=== PATIENT | male | born 1935 | race Caucasian/White ===

== ENCOUNTER 2016-04-09 13:56 | Inpatient (IN) | payer OTHER ==
--- NOTE | ~2016-04-09 | CN ---
Consultation Report [facility] [address] [place]. [address] NAME: CLAUDIA DANGELO : 37 STATUS : ADM IN PAT#: [id number] AGE: 80 ADM/REG DATE : 04/09/16 MR#: [id number] REPORT SERV DATE: 04/09/16 DICTATED BY: DATE: REPORT STATUS : Draft TRANSCRIBED BY: MODL DATE: 04/09/16 DATE OF CONSULTATION: CURRENT LOCATION: ER, bed 18. REASON FOR EVALUATION: Worsening chronic kidney disease with questionable precision to end- stage renal disease. HISTORY OF PRESENT ILLNESS: This is a very pleasant 80-year-old male patient, followed in our office by Dr. Juan Chaudhary. He is sent to [facility] for admission today post followup with Dr. Chaudhary. I have discussed the patient with Dr. Chaudhary via telephone this afternoon and recent history of the patient includes worsening difficulty with appetite and p.o. intake with questionable uremic symptoms over the last two to three months. He was recently placed inpatient in an outlying medical facility for severe nausea and vomiting. The patient was discharged after a short period of inpatient hospitalization apparently in early December and he was placed on a statin, which he did not tolerate very well. He was removed from this medication, but has continued to have the same difficulty with worsening fatigue and malaise as well as an overall poor appetite. He reports that food has essentially poor "cardboard-like taste." He is followed in the outpatient setting by Dr. Mehdi Holloway of Cardiology followed by Dr. Kwesi Mercado from Vascular and has recently had a followup with Dr. Mercado's office for monitoring of an abdominal aortic aneurysm, which was ultrasounded at his most recent followup. The patient is accompanied by his this afternoon. He is cachectic and ill-appearing; however, he is not currently in acute distress. Baseline creatinine over the last calendar year from available laboratories at [facility] appear to show baseline creatinine of approximately 3.01 to 3.44. Laboratories here at [facility] suggests previous creatinine in the calender year of 2016 ranging from 1.87 to 2.98. The patient is awake, alert, and oriented. He is in no acute distress. Denies current chest pain. Chronic nausea. No diarrhea or distress. PAST MEDICAL HISTORY: Positive for chronic kidney disease with medical history as listed above, baseline creatinine as reflected in HPI. Abdominal aortic aneurysm, followed by Dr. Kwesi Mercado with recent followup in his office. Additional medical history includes failure to thrive, chronic difficulty with dysphagia or difficult swallow as identified by the patient today in HPI and workup. History is also positive for hypertension, coronary artery disease status post CABG, PTCA and stent, BPH, degenerative joint disease, osteoarthritis, hyperlipidemia. SURGICAL HISTORY: Includes coronary artery bypass, appendectomy, cholecystectomy, and hiatal hernia. SOCIAL HISTORY: He is . No EtOH. No illicit drugs. No tobacco use. MEDICATIONS ON ENTRY: Received from the patient's home medications include carvedilol 12.5 mg p.o. b.i.d., furosemide 20 mg p.o. daily, CoQ10 100 mg in a.m. and p.m., isosorbide 60 mg Consultation Report [address] [place]. [address] NAME: CLAUDIA DANGELO : 39 STATUS : ADM IN [facility]#: [id number] AGE: 80 ADM/REG DATE : 04/09/16 MR#: [id number] REPORT SERV DATE: 04/09/16 DICTATED BY: DATE: REPORT STATUS : Draft TRANSCRIBED BY: MODL DATE: 04/09/16 p.o. daily, Plavix 75 mg p.o. with dinner, ASA 81 mg daily, nitroglycerin 0.4 mg p.r.n. for chest pain. PHYSICAL EXAMINATION: VITAL SIGNS: Blood pressure 144/71, temperature 97.5, respiratory rate at 18, 96% on room air. GENERAL: He is a cachectic, ill-appearing male patient, lying in bed, in no acute distress. HEENT: Normocephalic, atraumatic. Normal ocular movements. No scleral icterus or conjunctival pallor is appreciated. NECK: Supple without thyromegaly. No JVD or mass. CHEST: Shows positive S1 and S2. No rubs or gallops. LUNGS: Diminished with clear auscultation throughout with normal expansion and effort bilaterally. GI: Shows positive bowel sounds in all four quadrants. No appreciable mass or tenderness. : Deferred. EXTREMITIES: Show positive pulses to all four extremities. No clubbing, cyanosis, or edema. NEUROLOGIC: He is grossly intact and nonfocal. SKIN: Warm, dry, and intact to visualized surfaces. Has noted possible rash on his face, otherwise no rashes, lesions, or ecchymosis. PERTINENT LABORATORIES AND IMAGING: To this evaluation are as follows: Sodium of 140, potassium 4.7, chloride 104, CO2 of 23, BUN 69, creatinine 3.83, reflected GFR at 14 mL/minute, glucose of 108, calcium 9.6, magnesium 2.9, troponin 0.04. CBC: White blood cell count of 5.9, RBC 3.53, hemoglobin 10.3, hematocrit 31.4, platelets 222. B-natriuretic peptide greater than 5000. Portable chest x-ray showed a mild fullness of the pulmonary vasculature with bibasilar atelectasis and small bilateral pleural effusion, left greater than right status post median sternotomy. IMPRESSION AND PLAN: This is a late stage chronic kidney disease patient of Dr. Juan Chaudhary. His medical history is as listed above with question of progression to end- stage renal disease with worsening possible uremic symptomatology reflected in his poor appetite and fatigue. The patient will be admitted to the Hospitalist Service and in consultation, we will ask Dr. Holloway's opinion from a cardiologic perspective, in particularly with his cardiac history rather and his elevated BNP. He is also followed by Dr. Kwesi Mercado and we will ask Dr. Mercado's opinion regarding ongoing care for his abdominal aortic aneurysm and possible initiation of PermCath and plus or minus fistula for initiation of hemodialysis. In regard to his chronic kidney disease, we will continue further evaluation to discern underlying causative mechanism of worsening renal dysfunction as his creatinine was reasonably stable in late 2016. CT of the chest and abdomen and pelvis with his noted greater than 30 pounds weight loss over the last two to three months. Check SYD, double-stranded DNA, C3, C4, SPEP, CAMP, urine studies, urine sodium, urine creatinine, urine urea, urinalysis, spot brkgmgx-ce-ylgaujlftu ratio. No current evaluation of renal Doppler with CT of the abdomen and pelvis without contrast ordered. Place him on tele bed. Add antiemetic medications and place him on a diet. Address home medications as Consultation Report [address] [place]. [address] NAME: CLAUDIA DANGELO : 39 STATUS : ADM IN [facility]#: [id number] AGE: 80 ADM/REG DATE : 04/09/16 MR#: [id number] REPORT SERV DATE: 04/09/16 DICTATED BY: DATE: REPORT STATUS : Draft TRANSCRIBED BY: ZOYA DATE: 04/09/16 available. Appreciation in advance to sub services that are providing consultation and assisted in this patient's medical care. We look forward to involving you and your medical opinion in furthering his medical care. Further modification of treatment plan maybe made based on clinical presentation of the patient's laboratory results and further consultation with renal attending. /ZOYA Dov Smart NP / [id number] CC: Agapito Stovall M.D.
--- NOTE | ~2016-04-09 | CN ---
Consultation Report [facility] [address] [place]. [address] NAME: CLAUDIA DANGELO : 37 STATUS : ADM IN PAT#: [id number] AGE: 80 ADM/REG DATE : 04/09/16 MR#: [id number] REPORT SERV DATE: 04/09/16 DICTATED BY: DATE: REPORT STATUS : Draft TRANSCRIBED BY: MODL DATE: 04/09/16 DATE OF CONSULTATION: 04/09/2016 CHIEF COMPLAINT/REASON FOR CONSULT: History of coronary artery disease and congestive heart failure. HISTORY OF PRESENT ILLNESS: Mr. Claudia Dangelo is a very delightful 80-year-old gentleman, who is a patient of my colleague, Dr. Holloway. He noted with Dr. Holloway back in February that he had been having generalized feelings of fatigue and anorexia. The patient stated that his symptoms started some time in December of 2015 after the of his brother. He and his stopped on the way home and he ended up markedly short of breath. He states that he was hospitalized at [facility], and after his medication change, he seemed like he had increasing shortness of breath and intolerance to food. The patient states that he gets up in the morning feeling fairly well, but even with a sip of water or a bite of food he has increased shortness of breath and nausea. He stated that his symptoms have progressed and now are intolerable. They occur all the time. He states that his shortness of breath is better if he does not eat. He states that he has been sleeping in a recliner for the past month. He endorses orthopnea and insomnia. He has not had any lower extremity edema. The patient notes a weight loss of 40 to 45 pounds in the past month. PAST MEDICAL HISTORY: 1. Chronic systolic heart failure, ejection fraction 35% by echocardiogram on 11/13/2015. 2. Coronary artery disease, status post coronary artery bypass grafting and PCI to the RCA in 2010. 3. Chronic kidney disease, stage IV. 4. Abdominal aortic aneurysm, followed by Dr. Mercado. 5. Hypertension. 6. Left anterior fascicular block. 7. Mixed hyperlipidemia, intolerant to statins. 8. Right bundle branch block. 9. Right carotid stenosis. 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 He is . His is present at the bedside. He does not smoke, drink, or use extracurricular drugs. FAMILY HISTORY: Significant for brother who incidentally recently of congestive heart failure and renal failure in December 2015. REVIEW OF SYSTEMS: All systems were reviewed and is negative except for what is dictated in HPI. PHYSICAL EXAMINATION: VITAL SIGNS: Temperature 97.5, pulse 71, respirations 24, oxygen saturations 96% on 2 L nasal cannula, blood pressure is 147/83, weight is 166 pounds. GENERAL: Mr. Dangelo is a well-groomed 80-year-old gentleman. He appears mildly cachectic, Consultation Report [facility] [address] [facility] [place]. [address] NAME: CLAUDIA DANGELO : 37 STATUS : ADM IN [facility]#: [id number] AGE: 80 ADM/REG DATE : 04/09/16 MR#: [id number] REPORT SERV DATE: 04/09/16 DICTATED BY: DATE: REPORT STATUS : Draft TRANSCRIBED BY: MODL DATE: 04/09/16 but in no distress. NECK: I could not appreciate jugular venous distention or carotid bruits. HEART: Regular rate and rhythm. Normal S1, S2. I could not appreciate murmurs, rubs, or gallops. LUNGS: Clear to auscultation in all rubalcava. ABDOMEN: Soft and nontender. EXTREMITIES: Warm and well perfused. There is no pitting edema. NEUROLOGIC: The patient is a good historian. He is able to follow commands appropriately. DATA: An EKG performed in the hospital demonstrated sinus bradycardia at 51 beats per minute. There is a right bundle branch block. There is T-wave inversions in the anterior and anterolateral leads. These are unchanged from an EKG performed on 01/01/2016. DATA: Laboratory results noted a hemoglobin of 10.3, hematocrit of 31.4, and a platelet count of 222. INR of 1.2. Sodium 140, potassium 4.7, BUN 67, creatinine 3.83, GFR is 14. BNP is greater than 5000. Troponin is less than 0.04. A chest x-ray has not yet been performed. It has been ordered. IMPRESSION REPORT AND PLAN: 1. Anorexia and nausea. Differential diagnosis includes gastrointestinal versus end-stage renal disease versus cardiac. 2. End-stage renal disease/chronic kidney disease IV. 3. Chronic systolic heart failure without clear evidence of volume overload. 4. Abdominal aortic aneurysm. 5. Peripheral vascular disease. 6. History of coronary artery disease, status post coronary artery bypass graft and percutaneous coronary intervention. RECOMMENDATIONS: 1. I agree with Gastroenterology evaluation with a barium swallow and swallow study. Consider gastric emptying study also. 2. Consider hemodialysis per Nephrology. 3. Continue aspirin, Coreg, isosorbide and Plavix, if okay with Vascular Surgery. 4. We would recommend strict eyes I's and O's. 5. Daily weights. 6. Low-sodium diet. 7. Additional recommendations pending clinical course. It has been my pleasure to participate in the care of this gentleman. [facility]/ZOYA Kavya Cordoba Consultation Report [address] [place]. [address] NAME: CLAUDIA DANGELO : 37 STATUS : ADM IN PAT#: [id number] AGE: 80 ADM/REG DATE : 04/09/16 MR#: [id number] REPORT SERV DATE: 04/09/16 DICTATED BY: DATE: REPORT STATUS : Draft TRANSCRIBED BY: ZOYA DATE: 04/09/16 Agapito Lee / [id number] CC: Agapito Stovall M.D.
--- NOTE | ~2016-04-09 | DS ---
Discharge Summary [facility] [address] [place]. [address] NAME: CLAUDIA DANGELO : 39 STATUS : DIS IN PAT#: [id number] AGE: 80 ADM/REG DATE : 04/09/16 MR#: [id number] REPORT SERV DATE: 04/24/16 DICTATED BY: LEONEL BYRNES DATE: 04/23/16 REPORT STATUS : Draft TRANSCRIBED BY: ZOYA DATE: 04/23/16 Data Collection from hospitalization DISCHARGE DIAGNOSES: 1. End-stage renal disease. 2. Failure to thrive. 3. Congestive heart failure. 4. Hypertension. 5. Coronary artery disease. 6. Gastroparesis. 7. Abdominal aortic aneurysm. 8. Chronic dysphagia. 9. Benign prostatic hypertrophy. 10.Degenerative joint disease. 11.Osteoarthritis. 12.Hyperlipidemia. CONSULTATIONS: 1. Kavya Lee M.D. 2. Kwesi Mercado M.D. PROCEDURES PERFORMED: 1. Placement of right IJ PermCath with intraoperative ultrasound guidance on 04/11/2016. 2. CT scan of the abdomen and pelvis without contrast on 04/09/2016. 3. Gastric emptying study on 04/10/2016. MEDICATIONS: Refresh solution one drop twice a day, aspirin 81 mg daily, Coreg 12.5 mg twice a day, Plavix 75 mg daily, CoQ10 100 mg twice a day, sleep aid 25 mg at bedtime, Lasix 20 mg daily, Imdur 60 mg daily, and nitroglycerin 0.4 mg sublingually daily as needed. CONDITION AT DISCHARGE: Stable. DISPOSITION: The patient was discharged home with diet and activities as instructed. He would follow up at [place], [place] on Mondays, Wednesdays, and Fridays as instructed. HOSPITAL COURSE: This is a 80-year-old man who was sent to the [facility] after a followup visit with Dr. Chaudhary. The patient has had worsening difficulty with appetite and oral intake with questionable uremic symptoms over the past two to three months prior to admission. He was recently placed as an inpatient in an outlying medical facility with severe nausea and vomiting. The patient was discharged after a short period of inpatient hospitalization apparently in early December and he was placed on a statin agent, which he did not tolerate very well. He was removed from this medication, but had continued to have the same difficulty with worsening fatigue and malaise as well as an overall poor appetite. He reports that food had essentially a poor cardboard-like taste. He is followed in the outpatient setting by Dr. Ariadne Holloway of Cardiology and Dr. Kwesi Mercado of Vascular and has recently had a followup with Dr. Mercado's office for monitoring of an abdominal aortic aneurysm, which was ultrasounded at his most recent followup. The patient was accompanied by his . He was cachectic and ill-appearing, however, he was not Discharge Summary [address] [address] NAME: CLAUDIA DANGELO : 39 STATUS : DIS IN PAT#: [id number] AGE: 80 ADM/REG DATE : 04/09/16 MR#: [id number] REPORT SERV DATE: 04/24/16 DICTATED BY: LEONEL BYRNES DATE: 04/23/16 REPORT STATUS : Draft TRANSCRIBED BY: ZOYA DATE: 04/23/16 currently in acute distress. Creatinine over the past year had ranged from 1.87 to 2.98. He was admitted to the hospital at this time for further evaluation and treatment. Upon admission, he was placed in a telemetry bed. An antiemetic medications were added. He was seen by Dr. Kavya Lee regarding his history of coronary artery disease and congestive heart failure. The patient says that in the mornings when he gets up he feels fairly well, but even with a sip of water or bite of food, he has increased shortness of breath and nausea. He states that his symptoms had progressed and were now intolerable. They occur all the time. He said that his shortness of breath is better if he does not eat. He said that he has been sleeping in a recliner for the past month. He has had orthopnea and insomnia. He has not had any lower extremity edema. He said that he has had a weight loss of 40 to 45 pounds in the past month. An EKG performed in the hospital demonstrated sinus bradycardia at 51 beats per minute. There was a right bundle-branch block. There was T- wave inversions in the anterior and anterolateral leads. These were unchanged from an EKG performed on 01/01/2016. His creatinine level was 3.83. It was felt that the patient may need a Gastroenterology evaluation with a barium swallow and swallow study. We would also consider a gastric emptying study. Aspirin, Coreg, isosorbide, and Plavix would be continued. He was placed on a low-sodium diet. A CT scan of the abdomen and pelvis without contrast was performed. The following day, he had mild edema. Creatinine level was 3.86. A gastric emptying study was performed. The patient was felt to have moderate gastroparesis. Hepatitis and HIV were negative. The patient was seen by Dr. Kwesi Mercado. He is followed by Dr. Mercado for his peripheral artery disease. The patient has chronic kidney disease and was going to require new PermCath for dialysis. He was going to perform this. The following day, Speech-Language pathology performed a bedside swallow evaluation. Aspiration precautions were in place. He was in sinus bradycardia on telemetry. The patient stated that the gastric emptying study was the worse thing he had ever experienced. On 04/11/2016, he had no chest pain or dyspnea at rest. He did complain of severe fatigue. He had some nausea. The PermCath was going to be placed and he would undergo hemodialysis. The patient is intolerant of all statins. He does have delayed gastric emptying. He was taken to the endovascular operating room by Dr. Kwesi Mercado where he underwent the above-mentioned procedure. He tolerated this well, and there were no complications. On postop day #1, erythromycin had been started for his gastroparesis. He said he felt subjectively better. Hemodialysis therapy was performed. Creatinine level was 3.58. On 04/13/2016, he had a normal respiratory effort. He said he was feeling better. His appetite was increasing. Hemodialysis therapy continued. O2 was being weaned. Discharge planning was performed. On 04/15/2016, he continued to progress. He wanted to go home. Creatinine level was 3.07. He was evaluated by Occupational and Physical Therapy. Discharge instructions were given. Due to his improved and stable condition, he was discharged home with the above-stated instructions. Information collected by: [employer] I submit the above information as my discharge summary. Discharge Summary [address] [place]. [address] NAME: CLAUDIA DANGELO : 37 STATUS : DIS IN PAT#: [id number] AGE: 80 ADM/REG DATE : 04/09/16 MR#: [id number] REPORT SERV DATE: 04/24/16 DICTATED BY: LEONEL BYRNES DATE: 04/23/16 REPORT STATUS : Draft TRANSCRIBED BY: ZOYA DATE: 04/23/16 TG/ZOYA Leonel Byrnes M.D. / [id number] CC: Agapito Stovall M.D. Lisa Gail Carkner, M.D. Christopher Lesar, M.D.
--- NOTE | ~2016-04-09 | OP ---
Record Of Operation [facility] [address] [place]. [address] NAME: CLAUDIA DANGELO : 39 STATUS : DIS IN PAT#: [id number] AGE: 80 ADM/REG DATE : 04/09/16 MR#: [id number] REPORT SERV DATE: 04/16/16 DICTATED BY: KWESI MERCADO DATE: 04/16/16 REPORT STATUS : Draft TRANSCRIBED BY: MODL DATE: 04/16/16 DATE OF PROCEDURE: 04/11/2016 PREPROCEDURE DIAGNOSIS: End-stage renal disease. POSTOPERATIVE DIAGNOSIS: End-stage renal disease. PROCEDURE PERFORMED: Placement of right IJ PermCath with intraoperative ultrasound guidance. ATTENDING: Kwesi Mercado M.D. ANESTHESIA: Local MAC. COMPLICATIONS: None. INDICATION FOR PROCEDURE: Secondary to this very pleasant 80-year-old gentleman in need for access for dialysis, recommendations were made for a PermCath placement and consent was given. DETAILS OF PROCEDURE: The patient was brought to the endovascular operating room, placed in supine position, prepped and draped in routine sterile fashion with attention to the right neck. The right jugular vein was then cannulated with micropuncture needle after appropriate local and MAC anesthesia was instituted. This was performed under ultrasound guidance, and pictures were taken and placed on the chart. Next, a wire and sheath were then placed and this was performed under fluoroscopy to verify proper positioning. The dilator sheath was then passed in position under active fluoroscopy. Counterincision was made below the clavicle and the catheter was then tunneled between the two incisions and pulled through. The dilator and wire were removed leaving the sheath in place. The catheter was then advanced through the sheath. The sheath was then peeled away. The catheter was in good position at this point, it was flushed and finesse well with heparin saline. It was fully heparinized. The catheter was then attached to the patient's chest wall with suture. The small incision at the base of the neck was then closed with Monocryl. Fluoroscopy verified this to be in good position. At this point, dressings were applied. The patient tolerated the procedure well. CL/NAVINL Kwesi Mercado M.D. / [id number] CC: Leonel Byrnes M.D. Record Of Operation [address] [place]. [address] NAME: CLAUDIA DANGELO : 39 STATUS : DIS IN PAT#: [id number] AGE: 80 ADM/REG DATE : 04/09/16 MR#: [id number] REPORT SERV DATE: 04/16/16 DICTATED BY: KWESI MERCADO DATE: 04/16/16 REPORT STATUS : Draft TRANSCRIBED BY: ZOYA DATE: 04/16/16 Kwesi Wheeler M.D.
[~2016-04-09 13:56] MED LIST: ACET500CAP PO; ASAB PO; ASABAYER PO; CEFZIL500 MG PO; CENTRUM PO; CENTRUM TAB1 TAB PO; CO Q-10100 MG PO; COQ-10200 MG OR; COREG3 PO; COREG6 PO; COZAAR100 MG PO; DELSYM30 MG/5 ML PO; DIOV80 PO; FISH OIL300 MG PO; GARLIC; GARLIC 1000MG OTC PO; GLUCCHONDR PO; HYDROCHLOROT25 MG PO; IBU400 PO; KLOR-CON20 MEQ PO; L80 PO; LEVAQUIN750 MG PO; LOP25 PO; LUTEIN10 MG PO; MEGA RED 350 MG PO; MEGA RED KRILL OIL PO; OSTEO BI-FLEX1 EACH PO; PRAVAC PO; PROAIR HFA INH; REFRESH OPH; SAW PALMETT2 PO; T PO; UBIDECARENONE PO; VITC500 PO; XARELTO15 MG PO; Z100 PO; ZANTAC 75 PO; ZYFLAMEND; [UNRECOGNIZED DRUG - OTHER] PO
[2016-04-09 14:22] LABS: INTERNATIONAL NORMAL RATI 1.2 UNITS (-); PARTIAL THROMBO TIME 29.7 SEC (22.5-37.2); PROTIME (NOT ORD) 14.9 SEC (12.0-14.5)
[2016-04-09 14:31] LABS: BUN (BLOOD UREA NITROGEN) 69 MG/DL (6-23); CALCIUM, SERUM 9.6 MG/DL (8.5-10.4); CHEST PAIN PROFILE TAT 0 Hrs 21 Mins; CHLORIDE, SERUM 104 MMOL/L (96-112); CO2 (CARBON DIOXIDE) 23 MMOL/L (24-34); CREATININE 3.83 MG/DL (0.70-1.30); GFR AFRICAN AMERICAN 16 ML/MIN (>=60); GFR NON AFRICAN AMERICAN 14 ML/MIN (>=60); GLUCOSE, SERUM 108 MG/DL (60-99); POTASSIUM, SERUM 4.7 MMOL/L (3.5-5.3); SODIUM, SERUM 140 MMOL/L (135-148); TROPONIN I 0.04 NG/ML (<0.05)
[2016-04-09] MEDS ORDERED: NTG150 SL (15:34)
[2016-04-09] MEDS ORDERED: PLAVIX PO (15:34)
[2016-04-09] MEDS ORDERED: IMDUR60 PO (15:35)
[2016-04-09] MEDS ORDERED: SLEEP AID25 MG PO ×2 (15:35)
[2016-04-09 15:38] LABS: BASOPHILS 0.5 %; BASOPHILS ABSOLUTE 0.03 10/3/uL (0.0-0.16); EOSINOPHILS ABSOLUTE 0.06 10/3/uL (0.0-0.53); ER CBC TAT 0 Hrs 08 Mins; HEMATOCRIT 31.4 % (40.0-51.0); HEMOGLOBIN 10.3 g/dL (13.6-17.8); IMMATURE GRANULOCYTES 0.2 %; IMMATURE GRANULOCYTES ABSOLUTE 0.01 10/3/uL (0.0-0.11); LYMPHOCYTES 10.9 %; LYMPHOCYTES ABSOLUTE 0.65 10/3/uL (0.67-4.30); MANUAL DIFF NO %; MEAN CORPUS HGB CONC 32.8 g/dL (32.0-36.0); MEAN CORPUSCULAR HEMOGLOB 29.2 pg (26.0-34.0); MEAN PLATELET VOLUME 9.9 fL (9.2-13.0); MONOCYTES 10.1 %; NEUTROPHILS 77.3 %; NEUTROPHILS ABSOLUTE 4.59 10/3/uL (2.02-8.40); PLATELET COUNT 222 10/3/uL (150-400); RBC DISTRIBUTION WIDTH 16.7 % (12.0-16.0); RED CELL COUNT 3.53 10/6/uL (4.7-6.1); WHITE BLOOD CELLS 5.9 10/3/uL (4.5-10.5)
[2016-04-10 05:09] LABS: BASOPHILS 0.6 %; BASOPHILS ABSOLUTE 0.03 10/3/uL (0.0-0.16); EOSINOPHILS 2.2 %; EOSINOPHILS ABSOLUTE 0.12 10/3/uL (0.0-0.53); HEMATOCRIT 30.9 % (40.0-51.0); HEMOGLOBIN 10.1 g/dL (13.6-17.8); LYMPHOCYTES 16.1 %; LYMPHOCYTES ABSOLUTE 0.87 10/3/uL (0.67-4.30); MANUAL DIFF NO %; MEAN CORPUS HGB CONC 32.7 g/dL (32.0-36.0); MEAN CORPUSCULAR HEMOGLOB 28.9 pg (26.0-34.0); MEAN CORPUSCULAR VOLUME 88.5 fL (80-100); MEAN PLATELET VOLUME 10.6 fL (9.2-13.0); MONOCYTES 8.3 %; MONOCYTES ABSOLUTE 0.45 10/3/uL (0.21-1.20); NEUTROPHILS 72.8 %; NEUTROPHILS ABSOLUTE 3.93 10/3/uL (2.02-8.40); PLATELET COUNT 225 10/3/uL (150-400); RBC DISTRIBUTION WIDTH 16.7 % (12.0-16.0); RED CELL COUNT 3.49 10/6/uL (4.7-6.1); WHITE BLOOD CELLS 5.4 10/3/uL (4.5-10.5)
[2016-04-10 05:22] LABS: A/G RATIO 0.9 (0.7-1.9); ALBUMIN 3.1 G/DL (3.5-5.0); ALKALINE PHOSPHATASE 84 U/L (45-117); BUN (BLOOD UREA NITROGEN) 74 MG/DL (6-23); CALCIUM, SERUM 8.6 MG/DL (8.5-10.4); CHLORIDE, SERUM 106 MMOL/L (96-112); CO2 (CARBON DIOXIDE) 23 MMOL/L (24-34); COMPLEMENT C3 99 MG/DL (75-161); COMPLEMENT C4 24.8 MG/DL (16-47); CREATININE 3.86 MG/DL (0.70-1.30); GFR AFRICAN AMERICAN 16 ML/MIN (>=60); GFR NON AFRICAN AMERICAN 14 ML/MIN (>=60); GLOBULIN 3.3 G/DL (2.5-4.1); GLUCOSE, SERUM 98 MG/DL (60-99); SGOT(AST) 12 U/L (5-40); SGPT(ALT) 22 U/L (5-65); SODIUM, SERUM 142 MMOL/L (135-148); TOTAL BILIRUBIN 0.8 MG/DL (0-1.2); TOTAL PROTEIN 6.4 G/DL (6.0-8.5)
[2016-04-10 09:58] LABS: A/G 1.44 RATIO (0.9-2.10); ALBUMIN (ELECTRO) 3.54 GM/DL (3.2-5.5); ALPHA 1 (ELECTRO) 0.25 GM/DL (0.1-0.4); ALPHA 1 RELAT % (NOT ORD) 4.1 % (1.0-4.0); ALPHA 2 (ELECTRO) 0.76 GM/DL (0.5-1.10); ALPHA 2 RELAT % 12.6 % (4.5-26.0); BETA GLOBULIN (SPE) 0.65 GM/DL (0.60-1.30); BETA RELATIVE % 10.8 % (9.0-22.0); GAMMA GLOBULIN (SPE) 0.81 G/DL (0.70-1.60); GAMMA RELAT % 13.5 % (6.0-22.0)
[2016-04-10 10:18] LABS: HEPATITIS B SURFACE ANTIGEN NON-REACTIVE (NON-REACT); HEPATITIS C ANTIBODY NON-REACTIVE (NON-REACT)
[2016-04-10 10:19] LABS: ANA PATTERN SPECKLED
[2016-04-10 10:19] LABS: HEPATITIS B CORE AB IGM NON-REACTIVE (NON-REAC); HIV COMBO NON-REACTIVE (NON REAC)
[2016-04-10 10:20] LABS: HEP A ANTIBODY IGM NON-REACTIVE (NON-REACT)
[2016-04-11 22:06] LABS: BASOPHILS 0.7 %; BASOPHILS ABSOLUTE 0.04 10/3/uL (0.0-0.16); EOSINOPHILS 5.1 %; EOSINOPHILS ABSOLUTE 0.29 10/3/uL (0.0-0.53); HEMATOCRIT 32.4 % (40.0-51.0); HEMOGLOBIN 10.4 g/dL (13.6-17.8); IMMATURE GRANULOCYTES 0.3 %; IMMATURE GRANULOCYTES ABSOLUTE 0.02 10/3/uL (0.0-0.11); LYMPHOCYTES 18.8 %; LYMPHOCYTES ABSOLUTE 1.08 10/3/uL (0.67-4.30); MEAN CORPUS HGB CONC 32.1 g/dL (32.0-36.0); MEAN CORPUSCULAR HEMOGLOB 28.6 pg (26.0-34.0); MONOCYTES 7.9 %; MONOCYTES ABSOLUTE 0.45 10/3/uL (0.21-1.20); NEUTROPHILS 67.2 %; NEUTROPHILS ABSOLUTE 3.85 10/3/uL (2.02-8.40); PLATELET COUNT 240 10/3/uL (150-400); RBC DISTRIBUTION WIDTH 16.1 % (12.0-16.0); RED CELL COUNT 3.64 10/6/uL (4.7-6.1); WHITE BLOOD CELLS 5.7 10/3/uL (4.5-10.5)
[2016-04-11 22:08] LABS: MANUAL DIFF NO %
[2016-04-11 22:14] LABS: BUN (BLOOD UREA NITROGEN) 75 MG/DL (6-23); CALCIUM, SERUM 8.1 MG/DL (8.5-10.4); CHLORIDE, SERUM 105 MMOL/L (96-112); CO2 (CARBON DIOXIDE) 29 MMOL/L (24-34); CREATININE 3.83 MG/DL (0.70-1.30); GFR AFRICAN AMERICAN 16 ML/MIN (>=60); GFR NON AFRICAN AMERICAN 14 ML/MIN (>=60); GLUCOSE, SERUM 99 MG/DL (60-99); PHOSPHORUS, SERUM 5.7 MG/DL (2.5-4.5); POTASSIUM, SERUM 3.8 MMOL/L (3.5-5.3); SODIUM, SERUM 142 MMOL/L (135-148)
[2016-04-12 09:06] LABS: BASOPHILS 0.5 %; BASOPHILS ABSOLUTE 0.03 10/3/uL (0.0-0.16); EOSINOPHILS 6.1 %; EOSINOPHILS ABSOLUTE 0.34 10/3/uL (0.0-0.53); HEMATOCRIT 30.3 % (40.0-51.0); IMMATURE GRANULOCYTES 0.2 %; IMMATURE GRANULOCYTES ABSOLUTE 0.01 10/3/uL (0.0-0.11); LYMPHOCYTES 12.6 %; MEAN CORPUSCULAR VOLUME 87.8 fL (80-100); MEAN PLATELET VOLUME 9.9 fL (9.2-13.0); MONOCYTES 10.1 %; MONOCYTES ABSOLUTE 0.56 10/3/uL (0.21-1.20); NEUTROPHILS 70.5 %; PLATELET COUNT 215 10/3/uL (150-400); RED CELL COUNT 3.45 10/6/uL (4.7-6.1); WHITE BLOOD CELLS 5.5 10/3/uL (4.5-10.5)
[2016-04-12 09:08] LABS: MANUAL DIFF NO %
[2016-04-12 09:17] LABS: ALBUMIN 2.8 G/DL (3.5-5.0); BUN (BLOOD UREA NITROGEN) 71 MG/DL (6-23); CALCIUM, SERUM 8.2 MG/DL (8.5-10.4); CHLORIDE, SERUM 104 MMOL/L (96-112); CO2 (CARBON DIOXIDE) 28 MMOL/L (24-34); CREATININE 3.58 MG/DL (0.70-1.30); GFR AFRICAN AMERICAN 18 ML/MIN (>=60); GFR NON AFRICAN AMERICAN 15 ML/MIN (>=60); GLUCOSE, SERUM 102 MG/DL (60-99); POTASSIUM, SERUM 3.8 MMOL/L (3.5-5.3); SODIUM, SERUM 140 MMOL/L (135-148)
[2016-04-13 10:41] LABS: BASOPHILS 0.5 %; BASOPHILS ABSOLUTE 0.03 10/3/uL (0.0-0.16); EOSINOPHILS 8.1 %; EOSINOPHILS ABSOLUTE 0.45 10/3/uL (0.0-0.53); HEMATOCRIT 31.8 % (40.0-51.0); HEMOGLOBIN 10.2 g/dL (13.6-17.8); IMMATURE GRANULOCYTES 0.2 %; IMMATURE GRANULOCYTES ABSOLUTE 0.01 10/3/uL (0.0-0.11); LYMPHOCYTES ABSOLUTE 0.78 10/3/uL (0.67-4.30); MEAN CORPUS HGB CONC 32.1 g/dL (32.0-36.0); MEAN CORPUSCULAR HEMOGLOB 27.8 pg (26.0-34.0); MEAN CORPUSCULAR VOLUME 86.6 fL (80-100); MEAN PLATELET VOLUME 10.5 fL (9.2-13.0); MONOCYTES 10.4 %; MONOCYTES ABSOLUTE 0.58 10/3/uL (0.21-1.20); NEUTROPHILS 66.8 %; NEUTROPHILS ABSOLUTE 3.73 10/3/uL (2.02-8.40); PLATELET COUNT 242 10/3/uL (150-400); RED CELL COUNT 3.67 10/6/uL (4.7-6.1); WHITE BLOOD CELLS 5.6 10/3/uL (4.5-10.5)
[2016-04-13 10:47] LABS: ALBUMIN 2.8 G/DL (3.5-5.0); BUN (BLOOD UREA NITROGEN) 51 MG/DL (6-23); CALCIUM, SERUM 8.3 MG/DL (8.5-10.4); CHLORIDE, SERUM 105 MMOL/L (96-112); CO2 (CARBON DIOXIDE) 27 MMOL/L (24-34); CREATININE 3.07 MG/DL (0.70-1.30); GFR AFRICAN AMERICAN 21 ML/MIN (>=60); GFR NON AFRICAN AMERICAN 18 ML/MIN (>=60); GLUCOSE, SERUM 103 MG/DL (60-99); PHOSPHORUS, SERUM 3.4 MG/DL (2.5-4.5); POTASSIUM, SERUM 3.9 MMOL/L (3.5-5.3); SODIUM, SERUM 141 MMOL/L (135-148)
[2016-04-13 10:48] LABS: MANUAL DIFF NO %
[2016-04-15 14:45] LABS: BASOPHILS 0.2 %; BASOPHILS ABSOLUTE 0.01 10/3/uL (0.0-0.16); EOSINOPHILS 4.8 %; EOSINOPHILS ABSOLUTE 0.29 10/3/uL (0.0-0.53); HEMOGLOBIN 9.2 g/dL (13.6-17.8); LYMPHOCYTES 11.8 %; LYMPHOCYTES ABSOLUTE 0.72 10/3/uL (0.67-4.30); MEAN CORPUS HGB CONC 32.2 g/dL (32.0-36.0); MEAN CORPUSCULAR HEMOGLOB 27.6 pg (26.0-34.0); MEAN CORPUSCULAR VOLUME 85.9 fL (80-100); MEAN PLATELET VOLUME 10.2 fL (9.2-13.0); MONOCYTES 5.7 %; MONOCYTES ABSOLUTE 0.35 10/3/uL (0.21-1.20); NEUTROPHILS 77.5 %; NEUTROPHILS ABSOLUTE 4.72 10/3/uL (2.02-8.40); PLATELET COUNT 191 10/3/uL (150-400); RBC DISTRIBUTION WIDTH 15.7 % (12.0-16.0); RED CELL COUNT 3.33 10/6/uL (4.7-6.1); WHITE BLOOD CELLS 6.1 10/3/uL (4.5-10.5)
[2016-04-15 14:46] LABS: HEMATOCRIT 28.6 % (40.0-51.0); MANUAL DIFF NO %
[2016-04-15 15:02] LABS: ALBUMIN 2.5 G/DL (3.5-5.0); CALCIUM, SERUM 7.7 MG/DL (8.5-10.4); CHLORIDE, SERUM 104 MMOL/L (96-112); CO2 (CARBON DIOXIDE) 27 MMOL/L (24-34); SODIUM, SERUM 138 MMOL/L (135-148)
[2016-04-15 15:05] LABS: BUN (BLOOD UREA NITROGEN) 28 MG/DL (6-23); CREATININE 1.76 MG/DL (0.70-1.30); GFR AFRICAN AMERICAN 42 ML/MIN (>=60); GFR NON AFRICAN AMERICAN 36 ML/MIN (>=60); GLUCOSE, SERUM 173 MG/DL (60-99); PHOSPHORUS, SERUM 1.1 MG/DL (2.5-4.5); POTASSIUM, SERUM 3.1 MMOL/L (3.5-5.3)
[2016-07-23] MEDS ORDERED: ERY-TAB250 MG PO (15:49)
[2016-09-26] MEDS ORDERED: GARLIC TAB PO (13:06)
[2016-09-26] MEDS ORDERED: OSTEO BI-FLEX1 EACH PO (13:07)
[2016-09-26] MEDS ORDERED: RENVELA800 MG PO (13:17)
[2016-09-26] MEDS ORDERED: L40 PO (13:19)
[2016-09-26] MEDS ORDERED: DIALYVITE PO (13:20)
== END 2016-04-15 17:57 | disposition home or self-care (01) | DRG 682 ==
LOC: ER 13:56 → 2SO 17:17
PROVIDERS: Emergency Medicine; Internal Medicine Nephrology; Registered Nurse
PROC: 05HM33Z Insertion of Infusion Device into Right Internal Jugular Vein, Percutaneous Approach (ICD-10-PCS; principal; 2016-04-12)
PROC: B5131ZA Fluoroscopy of Right Jugular Veins using Low Osmolar Contrast, Guidance (ICD-10-PCS; 2016-04-12)
PROC: 5A1D60Z (ICD-10-PCS; 2016-04-12)
DX: N17.9 Acute kidney failure, unspecified (principal); I50.23 Acute on chronic systolic (congestive) heart failure; E43 Unspecified severe protein-calorie malnutrition; R64 Cachexia; I65.21 Occlusion and stenosis of right carotid artery; K31.84 Gastroparesis; I13.0 Hypertensive heart and chronic kidney disease with heart failure and stage 1 through stage 4 chronic kidney disease, or unspecified chronic kidney disease; I45.2 Bifascicular block; R13.10 Dysphagia, unspecified; N18.5 Chronic kidney disease, stage 5; R62.7 Adult failure to thrive; I71.4 Abdominal aortic aneurysm, without rupture; I25.10 Atherosclerotic heart disease of native coronary artery without angina pectoris; E78.5 Hyperlipidemia, unspecified; E78.2 Mixed hyperlipidemia; I73.9 Peripheral vascular disease, unspecified; N40.0 Benign prostatic hyperplasia without lower urinary tract symptoms; M19.90 Unspecified osteoarthritis, unspecified site; Z95.1 Presence of aortocoronary bypass graft; Z68.21 Body mass index [BMI] 21.0-21.9, adult; Z95.5 Presence of coronary angioplasty implant and graft
CPT/HCPCS: 36558; 71010; 71250; 74176; 76937; 77001; 78264; 80048; 80053; 80069; 80074; 82570; 83735; 83880; 84155; 84165; 84300; 84484; 84540; 85025; 85610; 85730; 86039; 86160; 86225; 87389; 92610-GN; 93005; 97161-GP; 97165-GO; 99285; A9270-GY; A9541; C1750; G0257; G8978-CK-GP; G8979-CI-GP; G8987-CJ-GO; G8988-CJ-GO; G8989-CJ-GO; J0690; J3010; P9047

== ENCOUNTER 2016-07-29 11:03 | Day surgery (SDC) | payer OTHER ==
--- NOTE | ~2016-07-29 | OP ---
Record Of Operation [facility] [address] [place]. [address] NAME: CLAUDIA DANGELO : 39 STATUS : [facility]#: [id number] AGE: 81 ADM/REG DATE : 07/29/16 MR#: [id number] REPORT SERV DATE: 07/30/16 DICTATED BY: KWESI MERCADO DATE: 07/29/16 REPORT STATUS : Draft TRANSCRIBED BY: MODL DATE: 07/29/16 DATE OF PROCEDURE: 07/29/2016 PREPROCEDURE DIAGNOSIS: End-stage renal disease. POSTOPERATIVE DIAGNOSIS: End-stage renal disease. PROCEDURE PERFORMED: Placement of left brachiocephalic AV fistula with intraoperative ultrasound guidance. ATTENDING: Kwesi Mercado M.D. ANESTHESIA: Local MAC. COMPLICATIONS: None. INDICATION FOR PROCEDURE: Secondary to this very pleasant 81-year-old gentleman presenting with a kidney failure in need for dialysis access, sharp dissection made for a left brachiocephalic AV fistula. Consent was given. DETAILS OF PROCEDURE: The patient was brought to the endovascular operating room, placed in supine position, prepped and draped in routine sterile fashion with attention to the left upper extremity. The cephalic vein was then interrogated by ultrasound, marked and mapped on the arm. This was then brought down near the brachial artery and then this was carefully marked on the skin. Pictures of the structures were taken and placed in the chart. Next, incision was then performed transversely just below the antecubital fossa. After appropriate local MAC anesthesia, dissection proceeded down to the cephalic vein which was then skeletonized proximally and distally. There was ligated and divided and brought over to the artery. The artery was then skeletonized and encircled with a loop and then dissected free. 3000 units of heparin was given and allowed to circulate. Then the artery was then clamped, opened and spatulated with Garcia scissors. A stay stitch was then placed. An end-to-side anastomosis was then performed with a 6-0 Prolene on a BV needle running continuous stitch from the cephalic vein to the brachial artery. This was hemostatic upon completion. There was excellent flow in the fistula, and there was a palpable ulnar pulse. 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 At this point, hands to be viable. The deep layers were then closed with Vicryl and Monocryl for the skin. Steri- Strip dressings were applied. The patient tolerated the procedure well. CL/MODL Kwesi Mercado M.D. / [id number] Record Of [address] [place]. [address] NAME: CLAUDIA DANGELO : 39 STATUS : [facility] PAT#: [id number] AGE: 81 ADM/REG DATE : 07/29/16 MR#: [id number] REPORT SERV DATE: 07/30/16 DICTATED BY: KWESI MERCADO DATE: 07/29/16 REPORT STATUS : Draft TRANSCRIBED BY: ZOYA DATE: 07/29/16 CC: Agapito Fletcher M.D.
[~2016-07-29 11:03] MED LIST changes: +ERY-TAB250 MG PO; +IMDUR60 PO; +NTG150 SL; +PLAVIX PO; +SLEEP AID25 MG PO
[2016-07-29 12:33] LABS: HEMATOCRIT 35.3 % (40.0-51.0); HEMOGLOBIN 12.1 g/dL (13.6-17.8)
[2016-07-29 12:44] LABS: CALCIUM, SERUM 9.5 MG/DL (8.5-10.4); CHLORIDE, SERUM 99 MMOL/L (96-112); CREATININE 3.16 MG/DL (0.70-1.30); GFR AFRICAN AMERICAN 21 ML/MIN (>=60); GFR NON AFRICAN AMERICAN 18 ML/MIN (>=60); GLUCOSE, SERUM 87 MG/DL (60-99); POTASSIUM, SERUM 4.1 MMOL/L (3.5-5.3); SODIUM, SERUM 135 MMOL/L (135-148)
[2016-07-29 12:45] LABS: BUN (BLOOD UREA NITROGEN) 24 MG/DL (6-23); CO2 (CARBON DIOXIDE) 29 MMOL/L (24-34)
[2016-09-26] MEDS ORDERED: GARLIC TAB PO (13:06)
[2016-09-26] MEDS ORDERED: OSTEO BI-FLEX1 EACH PO (13:07)
[2016-09-26] MEDS ORDERED: RENVELA800 MG PO (13:17)
[2016-09-26] MEDS ORDERED: L40 PO (13:19)
[2016-09-26] MEDS ORDERED: DIALYVITE PO (13:20)
== END 2016-07-29 19:17 | disposition home or self-care (01) ==
LOC: SDC 11:03
PROVIDERS: Anesthesiology; Specialist
PROC: 03180JD Bypass Left Brachial Artery to Upper Arm Vein with Synthetic Substitute, Open Approach (ICD-10-PCS; principal; 2016-07-29 13:15)
DX: I12.0 Hypertensive chronic kidney disease with stage 5 chronic kidney disease or end stage renal disease (principal); N18.6 End stage renal disease; I25.10 Atherosclerotic heart disease of native coronary artery without angina pectoris; I73.9 Peripheral vascular disease, unspecified; Z88.2 Allergy status to sulfonamides; Z95.1 Presence of aortocoronary bypass graft; Z79.82 Long term (current) use of aspirin; Z79.899 Other long term (current) drug therapy; Z90.49 Acquired absence of other specified parts of digestive tract; Z98.890 Other specified postprocedural states
CPT/HCPCS: 36821; 80048; 85014; 85018; 93005; J0690; J2250; J2795; J3010